=== PATIENT | female | born 1990 | race Caucasian/White ===

== ENCOUNTER → 2019-11-27 | Outpatient (CLI) | payer BC | LOC: RAD 15:48 | DX: M54.5 Low back pain (principal) ==

== ENCOUNTER → 2020-09-03 | Outpatient (CLI) | payer BC ==
[~2020-09-03] VITALS: Ht 157.5 cm; Wt 88.6 kg
[~2020-09-03] MED LIST: ALEVE220 M1 PO
[2020-09-03 23:24] VITALS: BP 122/78
[2020-09-04 11:55] VITALS: BP 127/82
== END ==
LOC: EDSTATUS 11:45 → AMSURD 17:40 → EDSTATUS 17:59 → AMSURD 23:20
DX: I82.469 Acute embolism and thrombosis of unspecified calf muscular vein (principal)
CPT/HCPCS: J1650

== ENCOUNTER → 2020-09-04 | Outpatient (CLI) | payer BC ==
[~2020-09-04] VITALS: Ht 157.5 cm; Wt 88.6 kg
[2020-09-04 11:55] VITALS: BP 127/82
== END ==
LOC: AMSURD 11:45
DX: I82.449 Acute embolism and thrombosis of unspecified tibial vein (principal); I82.819 Embolism and thrombosis of superficial veins of unspecified lower extremity
CPT/HCPCS: J1650

== ENCOUNTER → 2020-12-08 | Outpatient (CLI) | payer BC ==
[2020-09-04 11:55] VITALS: BP 127/82
== END ==
LOC: RAD 09:00 → VAS 09:00
DX: I82.409 Acute embolism and thrombosis of unspecified deep veins of unspecified lower extremity (principal)

== ENCOUNTER → 2021-04-16 | Outpatient (REF) | LOC: LAB 10:47 | DX: D68.59 Other primary thrombophilia (principal) ==

== ENCOUNTER → 2021-04-16 | Outpatient (CLI) | payer BC | LOC: RAD 10:52 | DX: M25.542 Pain in joints of left hand (principal) ==

== ENCOUNTER → 2021-05-11 | Outpatient (REF) | LOC: LAB 14:17 | DX: D68.59 Other primary thrombophilia (principal) ==

== ENCOUNTER 2021-08-26 21:54 | Emergency (ER) | payer BC ==
[~2021-08-26] VITALS: Ht 167.6 cm; Wt 88.6 kg
[2021-08-26] MEDS ORDERED: ESCITALOPRAM10 MG PO (23:03)
[2021-08-26] MEDS ORDERED: QUETIAPINE FUMA25 M3 PO (23:03)
[2021-08-26 23:35] LABS: HEMATOCRIT 35.5 % (37.0-47.0); MEAN CELL VOLUME 98 fl (78-100); MEAN CORPUSCULAR HEMOGLOBIN 33 pg (27-31); MEAN CORPUSCULAR HGB CONC 34 g/dL (33-37); MEAN PLATELET VOLUME 11.3 fl (7.4-10.4); PLATELET COUNT 147 K/mm3 (130-400); RED BLOOD COUNT 3.62 M/mm3 (4.10-5.30); RED CELL DISTRIBUTION WIDTH 12.2 % (11.5-14.5); WHITE BLOOD COUNT 7.6 K/mm3 (4.8-10.8)
[2021-08-26 23:44] LABS: POTASSIUM 3.7 mmol/L (3.5-5.1)
[2021-08-26 23:46] LABS: CALCIUM 9.2 mg/dL (8.3-10.5)
[2021-08-26 23:48] LABS: D-DIMER 0.34 mg/L FEU (0.15-0.50)
[2021-08-26 23:52] LABS: MAGNESIUM 1.56 mg/dL (1.60-2.60)
[2021-08-26 23:55] LABS: LYMPHOCYTE 3 % (20-51); MONOCYTE 5 % (3-10); NEUTROPHILS 92 % (42-75)
[2021-08-27] MEDS ORDERED: NORCO 325 MG-51 TA1 PO (00:17)
[2021-08-27] MEDS ORDERED: PREDNISONE20 M1 PO (00:17)
[2021-08-27 00:38] VITALS: BP 107/67
== END 2021-08-27 00:38 | disposition home or self-care (01) ==
LOC: ED 21:54
PROVIDERS: Physician Assistant
DX: E83.42 Hypomagnesemia (principal); M54.32 Sciatica, left side; F41.9 Anxiety disorder, unspecified; F32.A Depression, unspecified; E66.9 Obesity, unspecified; Z68.31 Body mass index [BMI] 31.0-31.9, adult; Z79.899 Other long term (current) drug therapy
CPT/HCPCS: J1885; J2360; J2930; J3010

== ENCOUNTER → 2024-08-27 | Outpatient (CLI) | payer SELFPAY ==
[~2024-08-27] MED LIST changes: +ESCITALOPRAM10 MG PO; +NORCO 325 MG-51 TA1 PO; +PEPCID AC20 M2 PO; +PREDNISONE20 M1 PO; +QUETIAPINE FUMA25 M3 PO
[2024-08-27 12:00] LABS: BASO # 0.02 K/mm3 (0.02-0.10); EOS # 0.04 K/mm3 (0.04-0.40); EOS % 0.6 % (1.0-5.0); HEMATOCRIT 41.1 % (37.0-47.0); LYMPH# 1.09 K/mm3 (1.50-4.00); MEAN CELL VOLUME 97 fl (78-100); MEAN CORPUSCULAR HEMOGLOBIN 33 pg (27-31); MEAN CORPUSCULAR HGB CONC 34 g/dL (33-37); MEAN PLATELET VOLUME 12.2 fl (7.4-10.4); MONO # 0.54 K/mm3 (0.20-0.80); NEU # 5.38 K/mm3 (1.40-6.50); PLATELET COUNT 140 K/mm3 (130-400); RED BLOOD COUNT 4.26 M/mm3 (4.10-5.30); RED CELL DISTRIBUTION WIDTH 12.2 % (11.5-14.5); WHITE BLOOD COUNT 7.1 K/mm3 (4.8-10.8)
[2024-08-27 12:06] LABS: ALBUMIN 4.1 g/dL (3.5-5.0)
[2024-08-27 12:07] LABS: CALCIUM 9.5 mg/dL (8.3-10.5)
[2024-08-27 12:08] LABS: TOTAL PROTEIN 7.4 g/dL (6.4-8.3)
[2024-08-27 12:10] LABS: TOTAL BILIRUBIN 0.6 mg/dL (0.2-1.2)
== END ==
LOC: LAB 11:31
PROVIDERS: Internal Medicine
DX: G40.909 Epilepsy, unspecified, not intractable, without status epilepticus (principal); R73.9 Hyperglycemia, unspecified

== ENCOUNTER → 2024-08-28 | Outpatient (CLI) | payer OTHER ==
[~2024-08-28] MED LIST changes: +Gadoterate 20 ML VIAL IV ONE
== END ==
LOC: RAD 14:12
DX: G40.909 Epilepsy, unspecified, not intractable, without status epilepticus (principal); R91.8 Other nonspecific abnormal finding of lung field
CPT/HCPCS: A9575

== ENCOUNTER → 2024-09-01 | Outpatient (CLI) | payer OTHER ==
[~2024-09-01] MED LIST changes: -Gadoterate 20 ML VIAL IV ONE
== END ==
LOC: LAB 11:16
DX: G40.909 Epilepsy, unspecified, not intractable, without status epilepticus (principal)

== ENCOUNTER → 2024-09-04 | Outpatient (CLI) | payer OTHER | LOC: AMSURD 11:26 | DX: I63.40 Cerebral infarction due to embolism of unspecified cerebral artery (principal) ==

== ENCOUNTER → 2024-10-30 | Outpatient (CLI) | payer OTHER ==
[2024-10-31 07:22] LABS: FACTOR V LEIDEN MUTATION B Negative (Negative)
[2024-11-01 16:09] LABS: BETA-2GPI IGG AABS 73 (0-20); BETA-2GPI IGM AABS <9 (0-32)
[2024-11-02 08:37] LABS: ANTI-THROMBIN III 104 % (72-128)
[2024-11-03 08:12] LABS: ANTI-CARDIOLIPIN IGA AMS; ANTI-CARDIOLIPIN IGG AMS; ANTI-CARDIOLIPIN IGM AMS
== END ==
LOC: LAB 07:40
PROVIDERS: Internal Medicine
DX: D68.59 Other primary thrombophilia (principal)